=== PATIENT | female | born 1975 | race Caucasian/White ===

== ENCOUNTER → 2016-08-05 | Emergency (ER) | payer OTHER ==
[~2016-08-05] MED LIST: Ketorolac Tromethamine 30 MG/ML VIAL ONE; Metoclopramide HCl 10 MG/2 ML VIAL ONE; SUMAtriptan Succinate 6 MG/0.5 ML VIAL ONE; Sodium Chloride 0.9% 1,000 ML ONE; Sodium Chloride 0.9% 100 ML ONE; diphenhydrAMINE HCl 50 MG/ML 1 ML VIAL ONE
== END ==
LOC: NAV ERS 11:16
DX: G43.909 Migraine, unspecified, not intractable, without status migrainosus (principal); I10 Essential (primary) hypertension; Z79.899 Other long term (current) drug therapy
CPT/HCPCS: 96365; 96375; J1200; J1885; J2765; J3030; J7050

== ENCOUNTER 2018-07-13 13:23 | Emergency (ER) | payer BC ==
[2018-07-13] MEDS ORDERED: Orphenadrine Citrate 60 MG/2 ML VIAL ONE (14:01)
[2018-07-13] MEDS ORDERED: diphenhydrAMINE 25 MG CAP ONE (14:01)
[2018-07-13] MEDS ORDERED: Promethazine HCl 25 MG/ML VIAL ONE (14:02)
[2018-07-13] MEDS ORDERED: Ketorolac Tromethamine 60 MG/2 ML VIAL ONE (14:02)
== END 2018-07-13 14:52 | disposition home or self-care (01) ==
LOC: NAV ERS 13:23
DX: G43.909 Migraine, unspecified, not intractable, without status migrainosus (principal); I10 Essential (primary) hypertension; F41.9 Anxiety disorder, unspecified; F17.210 Nicotine dependence, cigarettes, uncomplicated; Z79.899 Other long term (current) drug therapy
CPT/HCPCS: 96372; J1885; J2360; J2550; Q0163

== ENCOUNTER 2021-03-26 12:57 | Emergency (ER) | payer OTHER, SELFPAY ==
[2021-03-26] MEDS ORDERED: Acetaminophen 500 MG TAB ONE (13:54)
[2021-03-26] MEDS ORDERED: Ondansetron PF 4 MG/2 ML Vial ONE (13:54)
[2021-03-26 13:57] LABS: #Lymphocytes 1.4 thou/uL (1.20-3.40); #Monocytes 0.4 thou/uL (0.11-0.59); #Neutrophils 3.4 thou/uL (1.40-6.50); %Basophils 0.8 % (0.0-1.0); %Eosinophils 0.5 % (0.0-10.0); %Lymphocytes 26.9 % (21.0-51.0); %Monocytes 7.8 % (0.0-10.0); %Neutrophils 63.9 % (42.0-75.0); Hemoglobin 14.4 g/dL (12.0-16.0); Mean Corpuscular HGB CONC 34.5 g/dL (32.0-36.0); Mean Corpuscular Hemoglobin 33.8 pg (27.0-31.0); Mean Platelet Volume 6.8 fL (7.4-10.4); Platelet Count 224 thou/uL (130-400); Red Blood Cell (RBC) Count 4.25 mill/uL (4.20-5.40); White Blood Cell (WBC) Count 5.3 thou/uL (4.8-10.8)
[2021-03-26 14:15] LABS: ALT (SGPT) 39 U/L (8-55); AST (SGOT) 56 U/L (5-34); Albumin 3.8 g/dL (3.5-5.0); Alkaline Phosphatase 106 U/L (40-110); Anion Gap 18 mmol/L (10-20); BUN (Urea Nitrogen) 8 mg/dL (7.0-18.7); Bilirubin, Total 0.6 mg/dL (0.2-1.2); Calc. Creatinine Clearance 0 mL/min (70-130); Calcium 8.8 mg/dL (7.8-10.44); Carbon Dioxide 17 mmol/L (22-29); Chloride 105 mmol/L (98-107); Globulin 2.9 g/dL (2.4-3.5); Glucose 121 mg/dL (70-105); Protein, Total 6.7 g/dL (6.0-8.3); Sodium 137 mmol/L (136-145)
[2021-03-26 14:22] LABS: Potassium 2.8 mmol/L (3.5-5.1)
[2021-03-26] MEDS ORDERED: Sodium Chloride 0.9% 1,000 ML ONE (14:33)
[2021-03-26] MEDS ORDERED: Potassium Chloride 20 MEQ TAB ONE (14:33)
[2021-03-26] MEDS ORDERED: Ketorolac Tromethamine 30 MG/ML VIAL ONE (15:34)
== END 2021-03-26 15:48 | disposition home or self-care (01) ==
LOC: NAV ERS 12:57
DX: B34.9 Viral infection, unspecified (principal); E87.6 Hypokalemia; I10 Essential (primary) hypertension; G43.909 Migraine, unspecified, not intractable, without status migrainosus; F17.210 Nicotine dependence, cigarettes, uncomplicated; Z79.899 Other long term (current) drug therapy
CPT/HCPCS: 80053; 85025; 87804; 96374; 96375; J1885; J2405; J7050

== ENCOUNTER 2024-02-21 22:01 | Emergency (ER) | payer MEDICARE, OTHER ==
[2024-02-21] MEDS ORDERED: Ketorolac Tromethamine 60 MG/2 ML VIAL ONE (22:50)
[2024-02-21] MEDS ORDERED: Lidocaine 4% Patch ONE (22:50)
[2024-02-21] MEDS ORDERED: Methocarbamol 500 MG TAB ONE (22:50)
== END 2024-02-21 23:33 | disposition home or self-care (01) ==
LOC: NAV ERS 22:01
DX: S29.012A Strain of muscle and tendon of back wall of thorax, initial encounter (principal); K64.4 Residual hemorrhoidal skin tags; K64.8 Other hemorrhoids; I10 Essential (primary) hypertension; F17.210 Nicotine dependence, cigarettes, uncomplicated; Z79.899 Other long term (current) drug therapy; X58.XXXA Exposure to other specified factors, initial encounter; Y99.0 Civilian activity done for income or pay
CPT/HCPCS: 82274; 96372; 99283; J1885

== ENCOUNTER 2025-01-08 20:21 | Emergency (ER) | payer BC ==
[2025-01-08] MEDS ORDERED: Aspirin Chewable 81 MG TAB ONE (20:56)
[2025-01-08] MEDS ORDERED: Ketorolac Tromethamine 30 MG (1 mL) VIAL ONE (20:56)
[2025-01-08] MEDS ORDERED: Ondansetron PF 4 MG/2 ML Vial ONE (20:56)
[2025-01-08 21:04] LABS: #Basophils 0.0 thou/uL (0.0-0.2); #Eosinophils 0.0 thou/uL (0.0-0.7); #Lymphocytes 2.7 thou/uL (1.20-3.40); #Monocytes 0.5 thou/uL (0.11-0.59); #Neutrophils 3.6 thou/uL (1.40-6.50); %Basophils 0.6 % (0.0-1.0); %Eosinophils 0.6 % (0.0-10.0); %Lymphocytes 38.9 % (21.0-51.0); %Monocytes 7.7 % (0.0-10.0); %Neutrophils 52.3 % (42.0-75.0); Hematocrit 36.3 % (36.0-47.0); Hemoglobin 13.4 g/dL (12.0-16.0); Mean Corpuscular Hemoglobin 32.4 pg (27.0-31.0); Mean Corpuscular Volume 87.5 fl (78.0-98.0); Platelet Count 241 10x3/uL (130-400); Red Blood Cell (RBC) Count 4.14 mill/uL (4.20-5.40); White Blood Cell (WBC) Count 7.0 10x3/uL (4.8-10.8)
[2025-01-08 21:13] LABS: Anion Gap 19 mmol/L (10-20); BUN (Urea Nitrogen) 44 mg/dL (7.0-18.7); Calc. Creatinine Clearance 0 mL/min (70-130); Carbon Dioxide 21 mmol/L (22-29); Chloride 95 mmol/L (98-107); Potassium 3.3 mmol/L (3.5-5.1); Sodium 132 mmol/L (136-145)
[2025-01-08 21:14] LABS: ALT (SGPT) 15 U/L (Less than 34); AST (SGOT) 30 U/L (11-34); Albumin 4.0 g/dL (3.1-4.5); Alkaline Phosphatase 58 U/L (40-110); Bilirubin, Total 1.0 mg/dL (0.3-1.2); CK (CPK) 101 U/L (29-168); Calcium 9.2 mg/dL (7.8-10.44); Globulin 3.0 g/dL (2.4-3.5); Glucose 115 mg/dL (70-105); Magnesium 1.5 mg/dL (1.6-2.6)
[2025-01-08] MEDS ORDERED: Magnesium 2 GM/50 ML BAG (IN WATER) ONE (21:41)
[2025-01-08 21:46] LABS: Troponin I Less than 0.010 ng/mL (< 0.028)
[2025-01-09 00:14] LABS: Glucose, Urine (Dipstick) Negative (Negative); Leukocyte Negative (Negative); Protein, Urine (Dipstick) Negative (Neg-Trace); Specific Gravity, Urine 1.010 (1.005-1.030)
[2025-01-09 00:16] LABS: Bacteria/HPF None Seen HPF (None Seen); CAUTI Indications for Culture Dysuria,urgency,freq; RBC/HPF None Seen HPF (0-3); WBC/HPF 0-3 HPF (0-3)
[2025-01-09 00:17] LABS: Urine Culture Reflex No No
[2025-01-09] MEDS ORDERED: Acetaminophen 325 MG TAB ONE (00:29)
[2025-01-09 02:14] LABS: Troponin I Less than 0.010 ng/mL (< 0.028)
[2025-01-09] MEDS ORDERED: Ketorolac Tromethamine 30 MG (1 mL) VIAL ONE (04:29)
[2025-01-09 06:29] LABS: Troponin I Less than 0.010 ng/mL (< 0.028)
[2025-01-09 07:00] LABS: ALT (SGPT) 13 U/L (Less than 34); AST (SGOT) 24 U/L (11-34); Albumin 3.3 g/dL (3.1-4.5); Alkaline Phosphatase 48 U/L (40-110); Anion Gap 14 mmol/L (10-20); BUN (Urea Nitrogen) 40 mg/dL (7.0-18.7); Bilirubin, Total 0.5 mg/dL (0.3-1.2); Calc. Creatinine Clearance 0 mL/min (70-130); Calcium 7.9 mg/dL (7.8-10.44); Carbon Dioxide 18 mmol/L (22-29); Chloride 105 mmol/L (98-107); Globulin 2.4 g/dL (2.4-3.5); Glucose 129 mg/dL (70-105); Potassium 4.2 mmol/L (3.5-5.1); Sodium 133 mmol/L (136-145)
[2025-01-09 08:02] LABS: Magnesium 2.0 mg/dL (1.6-2.6)
== END 2025-01-09 07:58 | disposition short-term general hospital (02) ==
LOC: NAV ERS 20:21
DX: I95.9 Hypotension, unspecified (principal); R07.9 Chest pain, unspecified; N17.9 Acute kidney failure, unspecified; E87.6 Hypokalemia; E83.42 Hypomagnesemia; E86.0 Dehydration; I10 Essential (primary) hypertension; F17.210 Nicotine dependence, cigarettes, uncomplicated; Z79.899 Other long term (current) drug therapy
CPT/HCPCS: 36415; 71045; 80053; 81001; 82550; 83735; 83880; 84484; 85025; 85379; 93005; 96361; 96365; 96366; 96375; 96376; J1885; J2405; J2919; J3475; J7030

== ENCOUNTER 2025-01-16 11:03 | Emergency (ER) | payer BC ==
[2025-01-16 11:34] LABS: #Basophils 0.1 thou/uL (0.0-0.2); #Eosinophils 0.1 thou/uL (0.0-0.7); #Lymphocytes 2.3 thou/uL (1.20-3.40); #Monocytes 0.7 thou/uL (0.11-0.59); #Neutrophils 6.7 thou/uL (1.40-6.50); %Basophils 0.7 % (0.0-1.0); %Eosinophils 0.6 % (0.0-10.0); %Lymphocytes 23.6 % (21.0-51.0); %Monocytes 7.0 % (0.0-10.0); %Neutrophils 68.2 % (42.0-75.0); Hematocrit 30.8 % (36.0-47.0); Hemoglobin 11.3 g/dL (12.0-16.0); Mean Corpuscular Hemoglobin 32.6 pg (27.0-31.0); Mean Corpuscular Volume 88.9 fl (78.0-98.0); Platelet Count 368 10x3/uL (130-400); Red Blood Cell (RBC) Count 3.47 mill/uL (4.20-5.40); White Blood Cell (WBC) Count 9.9 10x3/uL (4.8-10.8)
[2025-01-16 11:49] LABS: ALT (SGPT) 12 U/L (Less than 34); AST (SGOT) 32 U/L (11-34); Albumin 3.7 g/dL (3.1-4.5); Alkaline Phosphatase 48 U/L (40-110); Anion Gap 18 mmol/L (10-20); BUN (Urea Nitrogen) 17 mg/dL (7.0-18.7); Bilirubin, Total 0.2 mg/dL (0.3-1.2); Calc. Creatinine Clearance 0 mL/min (70-130); Calcium 9.0 mg/dL (7.8-10.44); Carbon Dioxide 22 mmol/L (22-29); Chloride 104 mmol/L (98-107); Globulin 3.4 g/dL (2.4-3.5); Glucose 88 mg/dL (70-105); Magnesium 1.5 mg/dL (1.6-2.6); Potassium 3.9 mmol/L (3.5-5.1); Sodium 140 mmol/L (136-145)
[2025-01-16 11:52] LABS: Troponin I Less than 0.010 ng/mL (< 0.028)
[2025-01-16 12:52] LABS: Glucose, Urine (Dipstick) Negative (Negative); Leukocyte Negative (Negative); Protein, Urine (Dipstick) 30 mg/dL (Neg-Trace); Specific Gravity, Urine 1.015 (1.005-1.030)
[2025-01-16 13:15] LABS: CAUTI Indications for Culture Alt mental st,lethar; RBC/HPF 0-3 HPF (0-3)
[2025-01-16 13:16] LABS: Bacteria/HPF 2+ HPF (None Seen)
[2025-01-16 13:17] LABS: Urine Culture Reflex No No
== END 2025-01-16 13:15 | disposition home or self-care (01) ==
LOC: NAV ERS 11:03
DX: E86.0 Dehydration (principal); F17.210 Nicotine dependence, cigarettes, uncomplicated; Z79.899 Other long term (current) drug therapy
CPT/HCPCS: 71046; 80053; 81001; 83735; 83880; 84484; 85025; 93005; 94760; 96360; J7030